=== PATIENT | male | born 2000 | race Caucasian/White ===

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

== ENCOUNTER → 2021-07-02 | Outpatient (CLI) | payer OTHER ==
[2021-07-02 15:36] LABS: BASO % 0.5 % (0.0-1.0); EOS # 0.1 10^3/uL (0.0-0.5); EOS % 0.9 % (0.0-3.0); HEMATOCRIT 43.2 % (42.0-52.0); HEMOGLOBIN 14.2 g/dl (13.5-17.5); LYMPH # 1.8 10^3/uL (1.5-5.0); LYMPH % 22.9 % (24.0-44.0); MEAN CORPUSCULAR HEMOGLOBIN 29.5 pg (27.0-33.0); MEAN CORPUSCULAR HGB CONC 32.9 g/dl (32.0-36.5); MEAN CORPUSCULAR VOLUME 89.6 fl (80.0-96.0); MONO # 0.6 10^3/uL (0.0-0.8); MONO % 7.6 % (2.0-8.0); NEUTROPHILS # 5.3 10^3/uL (1.5-8.5); NEUTROPHILS % 67.5 % (36.0-66.0); PLATELET COUNT, AUTOMATED 234 10^3/uL (150-450); RED BLOOD COUNT 4.82 10^6/uL (4.30-6.10); WHITE BLOOD COUNT 7.9 10^3/uL (4.0-10.0)
[2021-07-02 16:00] LABS: HEMOGLOBIN A1c 5.2 %
[2021-07-02 16:00] LABS: ALBUMIN 4.6 GM/DL (3.2-5.2); ALT/SGPT 58 U/L (12-78); BILIRUBIN,TOTAL 0.8 MG/DL (0.2-1.0); BLOOD UREA NITROGEN 22 MG/DL (7-18); CALCIUM LEVEL 9.4 MG/DL (8.5-10.1); CARBON DIOXIDE LEVEL 27 MEQ/L (21-32); CHLORIDE LEVEL 107 MEQ/L (98-107); CREATININE FOR GFR 1.13 MG/DL (0.70-1.30); GLOMERULAR FILTRATION RATE > 60.0 (>60); GLUCOSE, FASTING 85 MG/DL (70-100); MAGNESIUM LEVEL 2.1 MG/DL (1.8-2.4); POTASSIUM SERUM 4.2 MEQ/L (3.5-5.1); SODIUM LEVEL 138 MEQ/L (136-145); TOTAL PROTEIN 7.5 GM/DL (6.4-8.2)
== END ==
LOC: M PLALAB 13:00
PROVIDERS: ATTEND Nurse Practitioner Family
DX: R56.9 Unspecified convulsions (principal)

== ENCOUNTER 2021-08-24 10:31 | Emergency (ER) | payer OTHER ==
[~2021-08-24] VITALS: Ht 182.9 cm; Wt 75.3 kg
[2021-08-24 13:35] LABS: BASO # 0.1 10^3/uL (0.0-0.2); EOS # 0.2 10^3/uL (0.0-0.5); EOS % 2.1 % (0.0-3.0); HEMATOCRIT 45.1 % (42.0-52.0); HEMOGLOBIN 15.2 g/dl (13.5-17.5); LYMPH # 2.3 10^3/uL (1.5-5.0); LYMPH % 32.1 % (24.0-44.0); MEAN CORPUSCULAR HEMOGLOBIN 30.2 pg (27.0-33.0); MEAN CORPUSCULAR HGB CONC 33.7 g/dl (32.0-36.5); MEAN CORPUSCULAR VOLUME 89.7 fl (80.0-96.0); MONO # 0.6 10^3/uL (0.0-0.8); MONO % 7.9 % (2.0-8.0); NEUTROPHILS % 56.1 % (36.0-66.0); PLATELET COUNT, AUTOMATED 223 10^3/uL (150-450); RED BLOOD COUNT 5.03 10^6/uL (4.30-6.10); WHITE BLOOD COUNT 7.1 10^3/uL (4.0-10.0)
--- NOTE | 2021-08-24 13:39 | REP ---
INDICATION: Syncope. COMPARISON: None. TECHNIQUE: 5 mm contiguous transaxial sections were obtained from the skull base to the cerebral convexities without the administration of intravenous contrast. FINDINGS: The ventricles and sulci are consistent with the patient's age. There are no extra-axial fluid collections. There is no mass effect. The deep cerebral white matter is consistent with the patient's age. The orbital and petrous structures, cerebellopontine angles, and posterior fossa are unremarkable. The sella turcica, cavernous, and paracavernous structures are essentially unremarkable. The visualized portions of the paranasal sinuses and mastoid air cells are clear. Images of the skull base show no gross abnormality. IMPRESSION: Essentially unremarkable CT examination of the brain. <Electronically signed by Joe Miller > 08/24/21 [id number]
[2021-08-24 14:11] LABS: CK-MB VALUE MASS 2.3 NG/ML (<3.6); CPK CREATINE PHOSPHOKINASE 182 U/L (39-308); FREE T4 0.96 NG/DL (0.76-1.46); MAGNESIUM LEVEL 2.1 MG/DL (1.8-2.4); MB/CK RELATIVE INDEX 1.26 (< OR =4); TROPONIN I < 0.02 NG/ML (< 0.10)
[2021-08-24 14:23] VITALS: BP 157/80
[2021-08-24 16:35] LABS: INR 1.09; PARTIAL THROMBOPLASTIN TIME 28.4 SECONDS (25.9-37.0); PROTHROMBIN TIME 14.6 SECONDS (12.7-14.5)
[2021-08-24 17:46] LABS: D-DIMER QUANT < 270 ng/ml (<500)
--- NOTE | 2021-08-26 07:28 | ECGEPIP ---
[facility] - ED Test Date: 2021-08-24 Pat Name: BETSEY VAUGHN Department: Room: - Gender: Male Pharmacy Clerk: [id number] : 2000 Requested By: Hodan Cabrera Order Number: [id number] Reading MD: Hodan Cabrera Measurements Intervals [place] Rate: 68 P: 72 FL: 142 QRS: 86 QRSD: 84 T: 43 QT: 356 QTc: 378 Interpretive Statements Normal sinus rhythm with sinus arrhythmia No prior Electronically Signed on 08-26-2021 7:28:30 EDT by Hodan Cabrera
== END 2021-08-24 16:38 | disposition home or self-care (01) ==
LOC: M ED 10:31
DX: R55 Syncope and collapse (principal)